=== PATIENT | female | born 1940 | race Caucasian/White ===

== ENCOUNTER → 2019-08-31 | Outpatient (CLI) | payer MEDICARE, OTHER ==
[~2019-08-31] MED LIST: ALEN70TA6 PO; ASPI-496 PO; CART1TAB4 PO; LORA-439 PO; LOSA50TA14 PO; LOVA20TA2 PO; MULT-658 PO; MV-M1TAB16 PO; OMEP-110 PO; TURM500C4 PO
[2019-08-31 11:29] LABS: ALBUMIN 3.6 g/dL (3.4-5.0); ANION GAP 6 mmol/L (5-15); CALCIUM 9.8 mg/dL (8.5-10.1); CHLORIDE 107 mmol/L (98-107)
[2019-08-31 11:33] LABS: ALANINE AMINOTRANSFERASE 58 U/L (12-78); ALKALINE PHOSPHATASE 113 U/L (45-117); BILIRUBIN,TOTAL 0.6 mg/dL (0.2-1.0); CREATININE 0.63 mg/dL (0.55-1.02); TOTAL PROTEIN 7.1 g/dL (6.4-8.2)
== END | disposition home or self-care (01) ==
LOC: STAR 10:22
PROVIDERS: ATTEND Thoracic Surgery (Cardiothoracic Vascular Surgery)
DX: Z01.818 Encounter for other preprocedural examination (principal); K44.9 Diaphragmatic hernia without obstruction or gangrene
CPT/HCPCS: 36415; 80053; 93005

== ENCOUNTER 2019-09-13 06:10 | Observation (INO) | payer MEDICARE, OTHER ==
[~2019-09-13] VITALS: Ht 160 cm; Wt 89.0 kg
[2019-09-13] MEDS ORDERED: BUPIVACAINE/PF 0.5% ONE (06:47)
[2019-09-13] MEDS ORDERED: EPINEPHRINE 1 MG/ML, 1ML ONE ×2 (06:47→07:31)
[2019-09-13] MEDS ORDERED: LACTATED RINGERS 1,000 ML IV SCH ×2 (06:48→08:31)
[2019-09-13 06:52] VITALS: BP 125/81
[2019-09-13] MEDS ORDERED: LIDOCAINE-MPF 1%, 2ML INFIL ONE (07:00)
[2019-09-13] MEDS ORDERED: DEXAMETHASONE 4 MG/ML, 1ML ONE (07:31)
[2019-09-13] MEDS ORDERED: SUGAMMADEX 200 MG/2 ML IVPush ONE (07:31)
[2019-09-13] MEDS ORDERED: PHENYLEPHRINE 10 MG/ML ONE (07:31)
[2019-09-13] MEDS ORDERED: ROCURONIUM 10 MG/ML,10ML ONE (07:31)
[2019-09-13] MEDS ORDERED: PROPOFOL 10 MG/ML, 20ML ONE (07:31)
[2019-09-13] MEDS ORDERED: CEFOTETAN 2 GM ONE (07:31)
[2019-09-13] MEDS ORDERED: ONDANSETRON 2MG/ML, 2ML ONE (07:31)
[2019-09-13] MEDS ORDERED: HYDROmorphone 2 MG/ML, 1ML IVPush PRN ×2 (08:30→09:00)
[2019-09-13] MEDS ORDERED: PROMETHAZINE 25 MG/ML, 1ML IV PRN (08:30)
[2019-09-13] MEDS ORDERED: OXYcodone 5 MG/5 ML ORAL.SOL UDC PO PRN (08:30)
[2019-09-13] MEDS ORDERED: FENTANYL PF 100 MCG/2ML IV PRN (08:30)
[2019-09-13] MEDS ORDERED: hydrALAzine 20 MG/ML, 1ML IV PRN ×2 (08:30→09:00)
[2019-09-13] MEDS ORDERED: ALBUTEROL SULFATE 2.5 MG/3 ML NPPB PRN (08:30)
[2019-09-13] MEDS ORDERED: MEPERIDINE/PF 25MG/ML,1ML IVPush PRN (08:30)
[2019-09-13] MEDS ORDERED: ENOXAPARIN 40 MG/0.4 ML SQ SCH (09:00)
[2019-09-13] MEDS ORDERED: HYDROcodone/APAP 7.5-325MG/15ML UDC PO PRN (09:00)
[2019-09-13] MEDS ORDERED: ONDANSETRON 2MG/ML, 2ML IVPush PRN (09:00)
[2019-09-13] MEDS ORDERED: DIPHENHYDRAMINE 50 MG/ML, 1ML IV PRN (09:00)
[2019-09-13] MEDS ORDERED: OXYcodone 5 MG/5 ML ORAL.SOL UDC ONE (09:11)
== END 2019-09-13 13:50 | disposition home or self-care (01) ==
LOC: OUT 06:10 → ORIP 08:31
PROVIDERS: ADMIT Thoracic Surgery (Cardiothoracic Vascular Surgery); ATTEND Thoracic Surgery (Cardiothoracic Vascular Surgery)
DX: K44.9 Diaphragmatic hernia without obstruction or gangrene (principal); J45.909 Unspecified asthma, uncomplicated; I12.9 Hypertensive chronic kidney disease with stage 1 through stage 4 chronic kidney disease, or unspecified chronic kidney disease; N18.9 Chronic kidney disease, unspecified; K21.9 Gastro-esophageal reflux disease without esophagitis; E78.00 Pure hypercholesterolemia, unspecified; M19.90 Unspecified osteoarthritis, unspecified site; E55.9 Vitamin D deficiency, unspecified; K22.2 Esophageal obstruction; Z79.899 Other long term (current) drug therapy
CPT/HCPCS: 43280; G0378; J0171; J1100; J2370; J2405; J2704; J3490; J7120; S0020